=== PATIENT | male | born 1985 | race African-American/Black ===

== ENCOUNTER 2017-02-09 10:08 | Emergency (ER) | payer SELFPAY ==
[~2017-02-09] VITALS: Ht 172.7 cm; Wt 84.5 kg
[2017-02-09 10:19] VITALS: BP 103/72
== END 2017-02-09 11:12 | disposition left against medical advice (07) ==
LOC: EMS 10:10
DX: M79.651 Pain in right thigh (principal); M79.672 Pain in left foot; W01.0XXA Fall on same level from slipping, tripping and stumbling without subsequent striking against object, initial encounter; Y93.89 Activity, other specified; Y92.89 Other specified places as the place of occurrence of the external cause; Y99.8 Other external cause status
CPT/HCPCS: 99281

== ENCOUNTER 2018-03-16 10:13 | Emergency (ER) | payer OTHER ==
[~2018-03-16] VITALS: Ht 170.2 cm; Wt 86.4 kg
[2018-03-16 11:45] VITALS: BP 129/80
[2018-03-16] MEDS ORDERED: KETOROLAC TROMETHAMINE 60 MG/2 ML VIAL IM ONE (11:45)
== END 2018-03-16 12:11 | disposition home or self-care (01) ==
LOC: EMS 10:14
DX: M72.2 Plantar fascial fibromatosis (principal); M62.830 Muscle spasm of back; F12.90 Cannabis use, unspecified, uncomplicated
CPT/HCPCS: 96372; 99283; J1885